=== PATIENT | male | born 1985 | race Hispanic/Latino ===

== ENCOUNTER 2017-11-17 00:32 | Emergency (ER) | payer OTHER ==
[2017-11-17] MEDS ORDERED: NACL 0.9% 1000 ML 1,000 ML IV ONE (00:54)
--- NOTE | 2017-11-17 00:57 | Emergency Department Report ---
ED Shortness of Breath HPI - General Chief Complaint: Dyspnea/Respdistress Stated Complaint: RESHMA Time Seen by Provider: 11/17/17 00:50 Source: patient, EMS Mode of arrival: Stretcher Limitations: No Limitations - History of Present Illness Initial Comments: 32 YO MALE WITH C/O WORSENING SHORTNESS OF BREATH ALL DAY LONG. HE IS HAVING PAIN BELOW HIS LEFT SCAPULA. HE WAS TRIPODING AND BREATHING 32 TIMES PER MINUTE WITH WHEN EMS ARRIVED. MD Complaint: shortness of breath -: Sudden Severity: severe Pain Scale: 8 Quality: sharp (AT HIS SCAPULA), stabbing Consistency: constant Improves With: nothing Worsens With: nothing Context: recent URI Associated Symptoms: denies other symptoms - Related Data Home Medications Medication Instructions Recorded Confirmed Last Taken Aspirin 325 mg PO DAILY 11/17/17 11/17/17 Unknown Allergies Allergy/AdvReac Type Severity Reaction Status Date / Time Penicillins Allergy Unknown Verified 11/17/17 00:37 ED Review of Systems ROS: Stated complaint: RESHMA Other details as noted in HPI Constitutional: denies: chills, fever Eyes: denies: eye pain, eye discharge, vision change ENT: denies: ear pain, throat pain Respiratory: denies: cough, shortness of breath, wheezing Cardiovascular: denies: chest pain, palpitations Endocrine: no symptoms reported Gastrointestinal: denies: abdominal pain, nausea, diarrhea Genitourinary: denies: urgency, dysuria Musculoskeletal: back pain. denies: joint swelling, arthralgia Skin: denies: rash, lesions Neurological: denies: headache, weakness, paresthesias Psychiatric: denies: anxiety, depression Hematological/Lymphatic: denies: easy bleeding, easy bruising ED Past Medical Hx - Past Medical History Previous Medical History?: Yes Hx Hypertension: Yes Additional medical history: DVT R arm, vitamin K deficiency, anxiety, - Surgical History Past Surgical History?: No - Family History Family history: hypertension - Social History Smoking Status: Current Every Day Smoker Substance Use Type: None - Medications Home Medications: Home Medications Medication Instructions Recorded Confirmed Last Taken Type Aspirin 325 mg PO DAILY 11/17/17 11/17/17 Unknown History ED Physical Exam - General Limitations: No Limitations ED Course Vital Signs 11/17/17 11/17/17 11/17/17 00:40 00:53 00:55 Temperature 98.8 F Pulse Rate 100 H 95 H 87 Respiratory 24 14 16 Rate Blood Pressure 172/93 Blood Pressure 172/93 [Left] O2 Sat by Pulse 99 99 95 Oximetry 11/17/17 11/17/17 11/17/17 01:01 01:15 01:30 Temperature Pulse Rate 100 H 91 H Respiratory 20 13 24 Rate Blood Pressure 172/93 172/93 Blood Pressure [Left] O2 Sat by Pulse 99 93 Oximetry 11/17/17 02:34 Temperature Pulse Rate Respiratory 22 Rate Blood Pressure Blood Pressure [Left] O2 Sat by Pulse Oximetry ED Medical Decision Making - Lab Data Result diagrams: 11/17/17 01:08 11/17/17 01:08 - EKG Data -: EKG Interpreted by Me EKG shows normal: sinus rhythm, axis, intervals, QRS complexes, ST-T waves - EKG Data Interpretation: no acute changes - Radiology Data Radiology results: report reviewed (CTA:NEGATIVE) Critical care attestation.: If time is entered above; I have spent that time in minutes in the direct care of this critically ill patient, excluding procedure time. ED Disposition Clinical Impression: Marijuana abuse, Dehydration Back pain Qualifiers: Back pain location: thoracic back pain Chronicity: acute Back pain laterality: left Qualified Code(s): M54.6 - Pain in thoracic spine Disposition: DC-01 TO HOME OR SELFCARE Is pt being admited?: No Does the pt Need Aspirin: No Condition: Stable Instructions: Back Pain (ED), Cannabis Abuse (ED) Additional Instructions: PLEASE STOP GOIG DRUGS. PLEASE GET BACK ON YOUR BLOOD THINNER YOU AR EAT RISK FOR BLOOD CLOTS. SEE YOUR DOVTOR IN TWO DAYS OR RETURN TO ED FOR ANY CONCERNS Time of Disposition: 06:18
[2017-11-17 01:25] LABS: Basophils # (Auto) 0.1 K/mm3 (0.0-0.1); Basophils % (Auto) 1.1 % (0.0-1.8); Eosinophils # (Auto) 0.2 K/mm3 (0.0-0.4); Hematocrit 46.9 % (35.5-45.6); Hemoglobin 16.5 gm/dl (11.8-15.2); Lymphocytes # (Auto) 2.2 K/mm3 (1.2-5.4); Lymphocytes % (Auto) 26.6 % (13.4-35.0); Mean Corpuscular HGB Conc 35 % (32-34); Mean Corpuscular Hemoglobin 33 pg (28-32); Mean Corpuscular Volume 93 fl (84-94); Monocytes # (Auto) 0.6 K/mm3 (0.0-0.8); Monocytes % (Auto) 7.7 % (0.0-7.3); Platelet Count 273 K/mm3 (140-440); Red Blood Count 5.07 M/mm3 (3.65-5.03)
[2017-11-17 01:36] LABS: Partial Thromboplastin Time 30.5 Sec. (24.2-36.6)
[2017-11-17 01:42] LABS: BUN/Creatinine Ratio 11; Blood Urea Nitrogen 10 mg/dL (9-20); Calcium 9.3 mg/dL (8.4-10.2); Hemolysis Index 6
[2017-11-17 01:49] LABS: Creatine Kinase MB 1.6 ng/mL (0.0-4.0)
[2017-11-17 02:05] LABS: Bilirubin,Urine NEG (Negative); Blood,Urine NEG (Negative); Color,Urine Straw (Yellow); Mucus,Urine FEW /HPF; Nitrite,Urine NEG (Negative); Protein,Urine <15 mg/dL mg/dL (Negative); Urobilinogen,Urine < 2.0 mg/dL (<2.0)
[2017-11-17 02:09] LABS: Amphetamine Screen,Urine PRESUMPTIVE NEGATIVE; Benzodiazepines Screen,Urine PRESUMPTIVE NEGATIVE; Cocaine Screen,Urine PRESUMPTIVE NEGATIVE; Methadone Screen,Urine PRESUMPTIVE NEGATIVE; Opiate Screen,Urine PRESUMPTIVE NEGATIVE
[2017-11-17 02:12] LABS: RBC,Urine < 1.0 /HPF (0.0-6.0); WBC,Urine < 1.0 /HPF (0.0-6.0)
[2017-11-17 02:22] LABS: Cannabinoid Screen,Urine PRESUMPTIVE POSITIVE
[2017-11-17] MEDS ORDERED: MORPHINE IV ONE (02:26)
[2017-11-17] MEDS ORDERED: ZOFRAN IV ONE (02:26)
[2017-11-17] MEDS ORDERED: NACL ONE (02:29)
--- NOTE | 2017-11-17 03:32 | Cat Scan Report ---
FINAL REPORT PROCEDURE: CT ANGIO CHEST TECHNIQUE: Computerized tomographic angiography of the chest was performed after the IV injection of iodinated nonionic contrast including image processing. The image data was postprocessed using 2-dimensional multiplanar reformatted (MPR) and 3-dimensional (MIP and/or volume rendered) techniques. HISTORY: CHEST PAIN,SOB COMPARISON: No prior studies are available for comparison. FINDINGS: Heart and pericardium: Normal. Thoracic aorta: Normal. Pulmonary vasculature: Normal. Lymph nodes: No enlarged thoracic lymph nodes. Lungs: Lungs are expanded. There are no rates, effusions or pneumothoraces. There is a noncalcified pulmonary nodule at the right lung base on image 91 which measures 8 millimeters. There is also a smaller noncalcified nodule in the right lower lung on image 83 measuring approximately 5 millimeters. A 3rd nodule seen in the right middle lobe on image 66 measuring 6 millimeters. There is a questionable nodule versus scar tissue in the region of the major fissure on the left on image 55 measuring 9 millimeters. There is a noncalcified nodule at the left lung base on image 83 measuring 6 millimeters. These lesions could be noncalcified granulomas. If there is underlying risk for malignancy, repeat chest CT in 6 months may be indicated.. Pleural space: No effusion, thickening, or pneumothorax. Musculoskeletal structures: No significant abnormality. Upper abdominal structures: No significant abnormality. IMPRESSION: There is no pulmonary embolism. There is no thoracic aortic aneurysm or dissection. There are no infiltrates. There are multiple bilateral noncalcified pulmonary nodules as described. Please see discussion above.
[2017-11-17 06:30] VITALS: BP 155/88
--- NOTE | 2017-11-17 09:18 | XRay Report ---
Chest 2 views: History: Shortness of breath. Findings: Normal cardiomediastinal silhouette. Trachea is midline. No consolidation, pneumothorax or pleural effusion. Impression: No definite acute lung changes.
== END 2017-11-17 06:42 | disposition home or self-care (01) ==
LOC: ED 00:32
DX: E86.0 Dehydration (principal); F12.10 Cannabis abuse, uncomplicated; M54.6 Pain in thoracic spine; I10 Essential (primary) hypertension; F41.9 Anxiety disorder, unspecified; F17.200 Nicotine dependence, unspecified, uncomplicated; Z86.718 Personal history of other venous thrombosis and embolism; Z88.0 Allergy status to penicillin; Z79.82 Long term (current) use of aspirin; Z79.899 Other long term (current) drug therapy
CPT/HCPCS: 36415; 71020; 71275; 80048; 80307; 81001; 82550; 82553; 83880; 84484; 85025; 85610; 85730; 93005; 93010; 96361; 96374; 96375; 99285; G0480; J2270; J2405; J7030; Q9967; 80320